=== PATIENT | female | born 1990 | race Two or more races ===

== ENCOUNTER 2024-12-23 12:25 | Emergency (ER) | payer OTHER ==
[~2024-12-23] VITALS: Ht 157.5 cm; Wt 600.1 kg
[2024-12-23] MEDS ORDERED: IBU800 MG PO (17:10)
== END 2024-12-23 18:03 | disposition home or self-care (01) ==
LOC: ER 12:28
DX: N93.8 Other specified abnormal uterine and vaginal bleeding (principal)

== ENCOUNTER 2025-09-11 20:12 | Emergency (ER) | payer OTHER ==
[~2025-09-11] VITALS: Ht 157.5 cm; Wt 54.4 kg
[~2025-09-11 20:12] MED LIST: IBU800 MG PO
[2025-09-11] MEDS ORDERED: DIPHTH,PERTUSS(ACELL),TET VAC 0.5 ML SYRINGE IM ONE ×2 (21:26→21:30)
[2025-09-11] MEDS ORDERED: KETOROLAC TROMETHAMINE 60 MG VIAL IM ONE ×2 (21:26→21:30)
[2025-09-12] MEDS ORDERED: NORFLEX100MG PO (00:04)
== END 2025-09-12 00:34 | disposition home or self-care (01) ==
LOC: ER 20:12
DX: S72.432A Displaced fracture of medial condyle of left femur, initial encounter for closed fracture (principal); W18.39XA Other fall on same level, initial encounter; Y93.89 Activity, other specified; Y92.89 Other specified places as the place of occurrence of the external cause; Y99.9 Unspecified external cause status